=== PATIENT | male | born 1990 | race Caucasian/White ===

== ENCOUNTER → 2019-02-20 | Outpatient (CLI) | payer BC ==
[2019-02-21 10:58] LABS: Avocado Class CLASS 0; Banana IgE Class CLASS 0; Chocolate IgE Class CLASS 0; Cow's Milk IgE Class CLASS 0; Egg White IgE <0.35 kU/L (<0.35); Hazelnut IgE <0.35 kU/L (<0.35); Hazelnut IgE Class CLASS 0; Kiwi IgE <0.35 kU/L (<0.35); Peanut IgE <0.35 kU/L (<0.35); Potato IgE <0.35 kU/L (<0.35); Potato IgE Class CLASS 0; Soybean IgE <0.35 kU/L (<0.35)
== END | disposition home or self-care (01) ==
LOC: LABWHC1 14:05
PROVIDERS: ATTEND Otolaryngology
DX: L50.0 Allergic urticaria (principal)
CPT/HCPCS: 36415; 86003

== ENCOUNTER 2019-04-27 15:16 | Emergency (ER) | payer BC ==
[2019-04-27 15:26] VITALS: RESP 18
[2019-04-27] MEDS ORDERED: diphenhydrAMINE 50 MG/ML 1 ML VIAL IVP STA (15:57)
[2019-04-27] MEDS ORDERED: SODIUM CHLORIDE 0.9% 1,000 ML IV STA (15:57)
[2019-04-27] MEDS ORDERED: SODIUM CHLORIDE 0.9% 1,000 ML IV SCH (16:00)
[2019-04-27 16:04] VITALS: PULSE 96
[2019-04-27 16:31] LABS: Basophils % (A) 0 %; Eosinophils # (A) 0.1 k/uL (0-0.7); Eosinophils % (A) 1 %; HCT 46.3 % (39.0-53.0); HGB 15.8 gm/dL (13.0-17.5); Lymphocytes # (A) 1.9 k/uL (1.0-4.8); Lymphocytes % (A) 13 %; MCH 31.4 pg (25.0-35.0); MCHC 34.2 g/dL (31.0-37.0); MCV 91.9 fL (80.0-100.0); Mean Platelet Volume 6.1; Monocytes # (A) 0.2 k/uL (0-1.0); Monocytes % (A) 2 %; Neutrophils # (A) 12.9 k/uL (1.3-7.7); Neutrophils % (A) 84 %; Platelet Count 320 k/uL (150-450); RBC 5.04 m/uL (4.30-5.90); RDW 12.3 % (11.5-15.5); WBC 15.3 k/uL (3.8-10.6)
[2019-04-27 16:38] LABS: ALT 17 U/L (21-72); AST 20 U/L (17-59); African American GFR (CKD) >90 (>60 ml/min/1.73 sqM); Albumin 4.1 g/dL (3.5-5.0); Alkaline Phosphatase 46 U/L (38-126); Amylase 47 U/L (30-110); Anion Gap 8 mmol/L; Blood Urea Nitrogen 13 mg/dL (9-20); Calcium 9.2 mg/dL (8.4-10.2); Carbon Dioxide 27 mmol/L (22-30); Chloride 101 mmol/L (98-107); Glucose 101 mg/dL (74-99); Sodium 136 mmol/L (137-145); Total Bilirubin 1.2 mg/dL (0.2-1.3); Total Protein 6.6 g/dL (6.3-8.2)
[2019-04-27 16:41] LABS: Appearance,Urine Clear (Clear); Bilirubin,Urine Negative (Negative); Blood,Urine Negative (Negative); Color,Urine Yellow; Glucose,Urine (UA) Negative (Negative); Ketones,Urine Negative (Negative); Leukocyte Esterase,Urine Negative (Negative); Mucus,Urine Rare /hpf; Nitrite,Urine Negative (Negative); Protein,Urine 1+ (Negative); RBC,Urine <1 /hpf (0-5); Specific Gravity,Urine 1.027 (1.001-1.035); WBC,Urine 1 /hpf (0-5)
--- NOTE | 2019-04-27 16:49 | XR ---
EXAMINATION TYPE: XR chest 2V DATE OF EXAM: 04/27/2019 COMPARISON: NONE HISTORY: Vomiting, diarrhea, swollen extremities TECHNIQUE: Frontal and lateral views of the chest are obtained. FINDINGS: There is no focal air space opacity, pleural effusion, or pneumothorax seen. The cardiac silhouette size is within normal limits. The osseous structures are intact. IMPRESSION: No acute cardiopulmonary process.
--- NOTE | 2019-04-27 16:57 | ED ---
General Adult HPI - General Source: patient, RN notes reviewed, old records reviewed Mode of arrival: ambulatory Limitations: no limitations <Rika Becerra - Last Filed: 04/27/19 17:37> <Denisse Ocasio - Last Filed: 04/28/19 00:32> - General Chief complaint: Nausea/Vomiting/Diarrhea Stated complaint: Swollen extremities Time Seen by Provider: 04/27/19 15:43 - History of Present Illness Initial comments: Patient's 29-year-old male coming presents emergency department today for evaluation for concerns for rash over his extremities, hands and feet. He reports he thought initially was ALLERGIES, and he's been on steroids. He reports he had a similar reaction to this a few weeks ago and was treated. Brunilda ent reports that he's been on steroids since Monday but the rash continue to worsen so they recently up to them. Patient was seen at [facility] is just feeling really unwell, feet tachycardic in flushed. Patient reportedly was diagnosed just a reaction to steroids. Patient states he last night had episodes of chills, nausea and vomiting. He states is been taking the 20 mg of prednisone as recently increased. Patient states that he had a slight sore throat, and cough for the past 2 days as well. He complains of bilateral feet and hand swelling. (Rika Becerra) - Related Data Home Medications Medication Instructions Recorded Confirmed Promethazine [Phenergan] 25 mg PO Q4HR PRN 04/27/19 04/27/19 diphenhydrAMINE [Benadryl] 50 mg PO Q4H PRN 04/27/19 04/27/19 predniSONE See Taper PO DIRECTED 04/27/19 04/27/19 Allergies Allergy/AdvReac Type Severity Reaction Status Date / Time No Known Allergies Allergy Verified 04/27/19 15:48 Review of Systems ROS Other: All systems not noted in ROS Statement are negative. <Rika Becerra - Last Filed: 04/27/19 17:37> ROS Other: All systems not noted in ROS Statement are negative. <Denisse Ocasio P - Last Filed: 04/28/19 00:32> ROS Statement: Those systems with pertinent positive or pertinent negative responses have been documented in the HPI. Past Medical History Past Medical History: No Reported History History of Any Multi-Drug Resistant Organisms: None Reported Past Surgical History: No Surgical Hx Reported Past Psychological History: No Psychological Hx Reported Smoking Status: Never smoker Past Alcohol Use History: None Reported Past Drug Use History: Marijuana <Rika Becerra - Last Filed: 04/27/19 17:37> General Exam Limitations: no limitations General appearance: alert, in no apparent distress Head exam: Present: atraumatic, normocephalic, normal inspection Eye exam: Present: normal appearance, PERRL, EOMI. Absent: scleral icterus, conjunctival injection, periorbital swelling ENT exam: Present: normal exam, mucous membranes moist Neck exam: Present: normal inspection. Absent: tenderness, meningismus, lymphadenopathy Respiratory exam: Present: normal lung sounds bilaterally. Absent: respiratory distress, wheezes, rales, rhonchi, stridor Cardiovascular Exam: Present: regular rate, normal rhythm, normal heart sounds. Absent: systolic murmur, diastolic murmur, rubs, gallop, clicks GI/Abdominal exam: Present: soft, normal bowel sounds. Absent: distended, tenderness, guarding, rebound, rigid Extremities exam: Present: normal inspection, full ROM, normal capillary refill, other (Swollen hands bilaterally, coming erythematous. ). Absent: tenderness, pedal edema, joint swelling, calf tenderness Back exam: Present: normal inspection Neurological exam: Present: alert, oriented X3, CN II-XII intact Psychiatric exam: Present: normal affect, normal mood Skin exam: Present: warm, dry, intact, normal color, rash (Patient has a diffuse macular papular rash over her feet arms and legs and back. He reports that starting to diminish somewhat today.) <Rika Becerra - Last Filed: 04/27/19 17:37> - General Exam Comments Initial Comments: 29-year-old male. Alert and oriented 3. (Rika Becerra) Course Vital Signs 04/27/19 04/27/19 04/27/19 15:23 16:02 17:07 Temperature 98.7 F 99.8 F H Pulse Rate 110 H 96 96 Respiratory 18 18 18 Rate Blood Pressure 129/74 132/76 132/80 O2 Sat by Pulse 96 94 L 97 Oximetry Medical Decision Making - Lab Data Result diagrams: 04/27/19 15:57 04/27/19 15:57 - Radiology Data Radiology results: report reviewed <Rika Becerra - Last Filed: 04/27/19 17:37> - Lab Data Result diagrams: 04/27/19 15:57 04/27/19 15:57 <Denisse Ocasio - Last Filed: 04/28/19 00:32> - Medical Decision Making 29-year-old male presented today for evaluation for nausea and vomiting, and acute rash or similar past week. Initially thought this was ALLERGIC reaction. Patient at this time does have a macular papular rash over her arms legs and feet. He states is not significantly pruritic time. Patient to have a low- grade temperature, complaining of mild sore throat and cough. Patient's chest x-ray is normal. Rapid strep and heterophile test is negative. Patient does have some leukocytosis but this could also be related to steroid use. I discussed this with Dr. Ocasio who also examined the Patient and evaluate the rash. Discussed the possibility of serum sickness with joint pains and this macular rash. I discussed the Patient would benefit from comply with the primary care doctor as well as rheumatology. I have a advised the Patient to continue Motrin Tylenol Benadryl and continuing the steroids. Discussed return parameters and the importance of staying hydrated. All questions were answered. (Rika Becerra) Ur slice on evaluated the patient. Patient very nonspecific rash in his lower extremities, discussed possible autoimmune versus serum sickness type symptoms. Patient agreeable with plan for continued steroids and outpatient follow-up. (Denisse Ocasio) - Lab Data Lab Results 04/27/19 04/27/19 04/27/19 Range/Units 15:57 15:57 15:57 WBC 15.3 H (3.8-10.6) k/uL RBC 5.04 (4.30-5.90) m/uL Hgb 15.8 (13.0-17.5) gm/dL Hct 46.3 (39.0-53.0) % MCV 91.9 (80.0-100.0) fL MCH 31.4 (25.0-35.0) pg MCHC 34.2 (31.0-37.0) g/dL RDW 12.3 (11.5-15.5) % Plt Count 320 (150-450) k/uL Neutrophils % 84 % Lymphocytes % 13 % Monocytes % 2 % Eosinophils % 1 % Basophils % 0 % Neutrophils # 12.9 H (1.3-7.7) k/uL Lymphocytes # 1.9 (1.0-4.8) k/uL Monocytes # 0.2 (0-1.0) k/uL Eosinophils # 0.1 (0-0.7) k/uL Basophils # 0.0 (0-0.2) k/uL Sodium 136 L (137-145) mmol/L Potassium 4.0 (3.5-5.1) mmol/L Chloride 101 (98-107) mmol/L Carbon Dioxide 27 (22-30) mmol/L Anion Gap 8 mmol/L BUN 13 (9-20) mg/dL Creatinine 1.07 (0.66-1.25) mg/dL Est GFR (CKD-EPI)AfAm >90 (>60 ml/min/1.73 sqM) Est GFR (CKD-EPI)NonAf >90 (>60 ml/min/1.73 sqM) Glucose 101 H (74-99) mg/dL Calcium 9.2 (8.4-10.2) mg/dL Total Bilirubin 1.2 (0.2-1.3) mg/dL AST 20 (17-59) U/L ALT 17 L (21-72) U/L Alkaline Phosphatase 46 (38-126) U/L Total Protein 6.6 (6.3-8.2) g/dL Albumin 4.1 (3.5-5.0) g/dL Amylase 47 (30-110) U/L Lipase 34 (23-300) U/L Urine Color Urine Appearance (Clear) Urine pH (5.0-8.0) Ur Specific [place] (1.001-1.035) Urine Protein (Negative) Urine Glucose (UA) (Negative) Urine Ketones (Negative) Urine Blood (Negative) Urine Nitrite (Negative) Urine Bilirubin (Negative) Urine Urobilinogen (<2.0) mg/dL Ur Leukocyte Esterase (Negative) Urine RBC (0-5) /hpf Urine WBC (0-5) /hpf Urine Mucus (None) /hpf Heterophile Antibody Negative (Negative) Group A Strep Rapid (Negative) 04/27/19 04/27/19 Range/Units 16:00 16:01 WBC (3.8-10.6) k/uL RBC (4.30-5.90) m/uL Hgb (13.0-17.5) gm/dL Hct (39.0-53.0) % MCV (80.0-100.0) fL MCH (25.0-35.0) pg MCHC (31.0-37.0) g/dL RDW (11.5-15.5) % Plt Count (150-450) k/uL Neutrophils % % Lymphocytes % % Monocytes % % Eosinophils % % Basophils % % Neutrophils # (1.3-7.7) k/uL Lymphocytes # (1.0-4.8) k/uL Monocytes # (0-1.0) k/uL Eosinophils # (0-0.7) k/uL Basophils # (0-0.2) k/uL Sodium (137-145) mmol/L Potassium (3.5-5.1) mmol/L Chloride (98-107) mmol/L Carbon Dioxide (22-30) mmol/L Anion Gap mmol/L BUN (9-20) mg/dL Creatinine (0.66-1.25) mg/dL Est GFR (CKD-EPI)AfAm (>60 ml/min/1.73 sqM) Est GFR (CKD-EPI)NonAf (>60 ml/min/1.73 sqM) Glucose (74-99) mg/dL Calcium (8.4-10.2) mg/dL Total Bilirubin (0.2-1.3) mg/dL AST (17-59) U/L ALT (21-72) U/L Alkaline Phosphatase (38-126) U/L Total Protein (6.3-8.2) g/dL Albumin (3.5-5.0) g/dL Amylase (30-110) U/L Lipase (23-300) U/L Urine Color Yellow Urine Appearance Clear (Clear) Urine pH 8.0 (5.0-8.0) Ur Specific [place] 1.027 (1.001-1.035) Urine Protein 1+ H (Negative) Urine Glucose (UA) Negative (Negative) Urine Ketones Negative (Negative) Urine Blood Negative (Negative) Urine Nitrite Negative (Negative) Urine Bilirubin Negative (Negative) Urine Urobilinogen 3.0 (<2.0) mg/dL Ur Leukocyte Esterase Negative (Negative) Urine RBC <1 (0-5) /hpf Urine WBC 1 (0-5) /hpf Urine Mucus Rare H (None) /hpf Heterophile Antibody (Negative) Group A Strep Rapid Negative (Negative) - Radiology Data No acute cardiopulmonary process. (Rika Becerra) Disposition Is patient prescribed a controlled substance at d/c from ED?: No Time of Disposition: 17:40 <Rika Becerra - Last Filed: 04/27/19 17:37> <Denisse Ocasio - Last Filed: 04/28/19 00:32> Clinical Impression: Rash, Diarrhea Disposition: HOME SELF-CARE Condition: Good Instructions (If sedation given, give patient instructions): Acute Diarrhea (ED), Acute Rash (ED), Autoimmune Disease (ED) Additional Instructions: Patient advised to rest, increase her fluid intake. Continue steroids and alternate between Motrin or Tylenol for pain. Also recommended using Benadryl for itching and control histamine response. Patient should have close follow-up with primary care doctor and rheumatology. Referrals: Ricky Julien MD [Primary Care Provider] - 1-2 days
[2019-04-27] MEDS ORDERED: IBUPROFEN 600 MG TAB PO STA (16:58)
[2019-04-27] MEDS ORDERED: ACETAMINOPHEN TAB 500 MG TAB PO STA (16:58)
[2019-04-27 17:09] VITALS: BP 132/80; TEMP 99.8
== END 2019-04-27 17:55 | disposition home or self-care (01) ==
LOC: EC 15:16
DX: R19.7 Diarrhea, unspecified (principal); R21 Rash and other nonspecific skin eruption; D72.829 Elevated white blood cell count, unspecified; R11.2 Nausea with vomiting, unspecified; J02.9 Acute pharyngitis, unspecified; R05 Cough; M79.89 Other specified soft tissue disorders; Z79.52 Long term (current) use of systemic steroids
CPT/HCPCS: 99284; 96374; 96361 ×2; 36415; 80053; 82150; 83690; 85025; 86308; 81001; 87040; 87081; 87430; 71046; J1200

== ENCOUNTER → 2019-05-18 | Outpatient (CLI) | payer BC ==
[2019-05-18 12:41] LABS: Basophils % (A) 1 %; Eosinophils # (A) 0.1 k/uL (0-0.7); Eosinophils % (A) 2 %; HCT 46.6 % (39.0-53.0); HGB 15.3 gm/dL (13.0-17.5); Lymphocytes # (A) 1.7 k/uL (1.0-4.8); Lymphocytes % (A) 32 %; MCH 30.5 pg (25.0-35.0); MCHC 32.9 g/dL (31.0-37.0); MCV 92.7 fL (80.0-100.0); Mean Platelet Volume 6.6; Monocytes # (A) 0.3 k/uL (0-1.0); Monocytes % (A) 6 %; Neutrophils % (A) 56 %; Platelet Count 282 k/uL (150-450); RBC 5.03 m/uL (4.30-5.90); RDW 12.4 % (11.5-15.5); WBC 5.3 k/uL (3.8-10.6)
[2019-05-18 13:32] LABS: Erythrocyte Sedimentation Rate 1 mm/hr (0-15)
[2019-05-18 18:01] LABS: ALT 37 U/L (10-49); AST 29 U/L (14-35); African American GFR (CKD) 116.5 (60.0-200.0); Albumin/Globulin Ratio 2.59 (1.60-3.17); Alkaline Phosphatase 61 U/L (41-126); C Reactive Protein <0.4 mg/dL (0.0-0.8); Calcium 9.1 mg/dL (8.7-10.3); Chloride 107 mmol/L (96-109); Globulin 1.7 g/dL (1.6-3.3); Glucose 92 mg/dL (70-110); Potassium 4.3 mmol/L (3.5-5.5); Sodium 141 mmol/L (135-145); Total Bilirubin 0.7 mg/dL (0.3-1.2); Total Protein 6.1 g/dL (6.2-8.2)
[2019-05-18 20:38] LABS: Thyroid Peroxidase Antibodies 28.3 U/mL (0.0-60.0)
== END | disposition home or self-care (01) ==
LOC: LABWHC1 11:42
PROVIDERS: ATTEND Allergy & Immunology
DX: L50.9 Urticaria, unspecified (principal)
CPT/HCPCS: 36415; 80053; 85025; 85652; 86140; 86160; 86376; 86800; 88184; 88185

== ENCOUNTER → 2019-07-25 | Outpatient (CLI) | payer BC ==
--- NOTE | 2019-07-25 16:14 | US ---
EXAMINATION TYPE: US kidneys/renal and bladder DATE OF EXAM: 07/25/2019 COMPARISON: NONE CLINICAL HISTORY: R10.9 left flank pain. EXAM MEASUREMENTS: Right Kidney: 10.6 x 3.3 x 5.7 cm Left Kidney: 10.7 x 5.4 x 5.0 cm Right Kidney: No hydronephrosis or masses seen Left Kidney: No hydronephrosis or masses seen Bladder: wnl There is no evidence for hydronephrosis at this point in time. No nephrolithiasis is seen. No nilo s are identified. The urinary bladder is anechoic. Bilateral ureteral jets are seen on saved images . IMPRESSION: Unremarkable study.
== END | disposition home or self-care (01) ==
LOC: RADUSWWP 15:39
PROVIDERS: ATTEND Internal Medicine Geriatric Medicine
DX: R10.9 Unspecified abdominal pain (principal)
CPT/HCPCS: 76770

== ENCOUNTER 2021-04-05 06:07 | Day surgery (SDC) | payer BC ==
[2021-03-30 11:59] VITALS: BMI 25.9
[~2021-04-05 06:07] MED LIST: ACETAMINOPHEN TAB 500 MG TAB PO PRN; HEPARIN SODIUM,PORCINE/PF 5,000 UNIT/0.5 ML SYRINGE SQ PRN
[2021-04-05] MEDS ORDERED: ONDANSETRON 4 MG/2 ML VIAL ONE (06:44)
[2021-04-05] MEDS ORDERED: LACTATED RINGERS 1,000 ML IV ONE (06:45)
[2021-04-05] MEDS ORDERED: DEXAMETHASONE SOD PHOSPHATE 4 MG/ML 1 ML VIAL IV STA (06:47)
[2021-04-05] MEDS ORDERED: ONDANSETRON 4 MG/2 ML VIAL IVP STA (06:47)
[2021-04-05] MEDS ORDERED: DEXAMETHASONE SOD PHOSPHATE 4 MG/ML 1 ML VIAL IVP ONE (06:52)
[2021-04-05] MEDS ORDERED: MIDAZOLAM 2 MG/2 ML VIAL ONE (07:45)
[2021-04-05] MEDS ORDERED: NEOSTIGMINE 1 MG/ML 10 ML VIAL ONE (07:45)
[2021-04-05] MEDS ORDERED: GLYCOPYRROLATE 0.2 MG/ML 2 ML VIAL ONE (07:45)
[2021-04-05] MEDS ORDERED: fentaNYL (PF) 50 MCG/ML 2 ML AMP ONE (07:45)
[2021-04-05] MEDS ORDERED: ROCURONIUM 10 MG/ML (5 ML VIAL) IV ONE (07:45)
[2021-04-05] MEDS ORDERED: LIDOCAINE 1% INJ 10MG/ML (20 ML MDV) ONE (07:45)
[2021-04-05] MEDS ORDERED: PROPOFOL 10 MG/ML 20 ML VIAL IV ONE (07:45)
[2021-04-05] MEDS ORDERED: SUCCINYLCHOLINE CHLORIDE 100 MG/5 ML SYR IV ONE (07:45)
[2021-04-05] MEDS ORDERED: LACTATED RINGERS 1,000 ML IV SCH (07:47)
[2021-04-05] MEDS ORDERED: MIDAZOLAM 2 MG/2 ML VIAL IV PRN (07:47)
[2021-04-05] MEDS ORDERED: ONDANSETRON 4 MG/2 ML VIAL IVP ONE (07:47)
[2021-04-05] MEDS ORDERED: SCOPOLAMINE 1.5MG/72HR PATCH TRANSDERM ONE (07:47)
[2021-04-05] MEDS ORDERED: DEXAMETHASONE SOD PHOSPHATE 4 MG/ML 1 ML VIAL IV ONE (07:47)
[2021-04-05] MEDS ORDERED: HYDROmorphone 0.5 MG/0.5 ML SYRINGE IVP PRN (07:47)
--- NOTE | 2021-04-05 07:47 | P.GSHP ---
History of Present Illness H&P Date: 04/05/21 Chief Complaint: Right inguinal hernia 31-year-old male here today for elective repair right inguinal hernia. Patient was seen in the office in September. Recently called back to schedule surgery. Still having mild pain right groin at times. No symptoms on the left. No hist ory of previous hernia. No change in bowel habits. Past Medical History Past Medical History: No Reported History Additional Past Medical History / Comment(s): HERNIA History of Any Multi-Drug Resistant Organisms: None Reported Past Surgical History: No Surgical Hx Reported Additional Past Surgical History / Comment(s): ORAL SX AROUND 11 YEARS OLD Past Anesthesia/Blood Transfusion Reactions: No Reported Reaction Smoking Status: Never smoker - Past Family History Mother Family Medical History: No Reported History Medications and Allergies Home Medications Medication Instructions Recorded Confirmed Type No Known Home Medications 03/30/21 04/05/21 History Allergies Allergy/AdvReac Type Severity Reaction Status Date / Time No Known Allergies Allergy Verified 04/05/21 06:31 Surgical - Exam Vital Signs Temp Pulse Resp BP Pulse Ox 97.4 F L 55 L 15 129/65 98 04/05/21 06:38 04/05/21 06:38 04/05/21 06:38 04/05/21 06:38 04/05/21 06:38 Physical exam: General: Well-developed, well-nourished HEENT: Normocephalic, sclerae nonicteric Abdomen: Nontender, nondistended, reducible right inguinal hernia Extremities: No edema Neuro: Alert and oriented Assessment and Plan (1) Right inguinal hernia Narrative/Plan: 31-year-old male with reducible right inguinal hernia. We'll proceed with laparoscopic da David assisted repair right inguinal hernia with mesh, possible bilateral, possible open. Risks of bleeding, infection, recurrence, bladder and bowel injury, numbness, nerve injury, conversion to an open procedure were discussed with the patient. The patient understands and wishes to proceed. Current Visit: Yes Status: Acute Code(s): K40.90 - UNIL INGUINAL HERNIA, W/O OBST OR GANGR, NOT SPCF RECUR SNOMED Code(s): 438164560
[2021-04-05] MEDS ORDERED: BUPIVACAINE (PF) 0.25% 30 ML VIAL SQ ONE ×2 (08:33)
--- NOTE | 2021-04-05 09:33 | P.OP ---
Date of Procedure: 04/05/21 Procedure(s) Performed: PREOPERATIVE DIAGNOSIS: Right inguinal hernia POSTOPERATIVE DIAGNOSIS: Right Indirect inguinal hernia PROCEDURE: Laparoscopic da David assisted repair right inguinal hernia with mesh SURGEON: Dr. Wood ANESTHESIA: General OPERATIVE PROCEDURE DETAILS: Patient was placed in the operating table in the supine position. The patient was placed under general anesthesia. The abdomen was prepped and draped in usual sterile fashion. A small curvilinear supraumbilical incision was made. The fascia was retracted anteriorly with Dorene forceps. The Veress needle was inserted. The saline drop test was normal. Insufflation took place to 15 mmHg. An 8 mm trocar was placed into the peritoneal cavity. 2 additional 8 mm trochars were placed in the right upper quadrant and left upper quadrant under visualization. The robotic arms were then brought in and docked into place. The fenestrated bipolar was used in the left arm and the laparoscopic wandy was utilized in the right arm. A 30 8 mm scope was used in the up position. The peritoneal cavity was inspected. The patient had a moderate-sized indirect hernia on the right. The peritoneum was incised in a horizontal fashion cephalad to the internal inguinal ring. Following that careful dissection of the preperitoneal space took place. This took place using both electrocautery, sharp dissection but primarily blunt dissection. Visualization of the pubic tubercle and Fer's ligament took place medially. Full dissection took place laterally as well. The hernia sac was fully dissected. Once we had adequate space the extra-large Bard 3-D mid mesh was advanced into the preperitoneal space and flattened out appropriately to cover all potential hernia sites. No sutures were used. The peritoneal defect was then closed using a absorbable 2-0 VLok suture. The hernia sac was incorporated into the peritoneal closure to help prevent future recurrence. The pneumoperitoneum was then evacuated. The skin of all 3 sites was closed using a 4-0 Monocryl stitch. Skin glue was then applied. HERNIA CHARACTERISTICS: Length: 6 cm Width: 1 cm Type: Indirect inguinal TYPE OF MESH USED: Bard 3-D XL LOCATION OF MESH: Preperitoneal FIXATION: None DISPOSITION: Stable to recovery room
[2021-04-05 09:45] VITALS: TEMP 97.2
[2021-04-05] MEDS ORDERED: KETOROLAC 15 MG/ML 1 ML VIAL ONE (09:46)
[2021-04-05] MEDS ORDERED: KETOROLAC 15 MG/ML 1 ML VIAL IVP ONE (09:49)
[2021-04-05 10:31] VITALS: PULSE 65; RESP 16
[2021-04-05 10:48] VITALS: BP 105/77
[2021-04-05] MEDS ORDERED: IBUPROFEN 600 MG TAB PO SCH (12:30)
[2021-04-05] MEDS ORDERED: ACETAMINOPHEN TAB 325 MG TAB PO SCH (15:30)
== END 2021-04-05 11:25 | disposition home or self-care (01) ==
LOC: OR 06:07
PROVIDERS: ATTEND Surgery
DX: K40.90 Unilateral inguinal hernia, without obstruction or gangrene, not specified as recurrent (principal)
CPT/HCPCS: 49650; C1781; J2250; J1100; J2710; J0690; J2405; J2001; J3010; J1885; J0330; J2704; J1170; J1644